=== PATIENT | male | born 1955 | race Caucasian/White ===

== ENCOUNTER 2024-07-04 15:29 | Outpatient (OUT) | payer MEDICARE, OTHER, SELFPAY ==
--- NOTE | 2024-07-04 15:42 | US_ITS ---
The [address] [address] Patient Name: YASMANY MICHAEL MRN: [id number] date: 1955 Sex: M Assigned Patient Location: US Current Patient Location: US Accession/Order Number: [id number] Exam Date: 07/04/2024 16:06 Report Date: 07/05/2024 09:09 At the request of: JADYN MARTINEZ Procedure: US venous doppler LE LT CLINICAL DATA: Left leg pain PROCEDURE: Left lower extremity venous duplex ultrasound TECHNIQUE: Blair-scale, color flow, and waveform spectral analysis was performed of the left lower extremity. FINDINGS: The left common femoral, profunda femoral, femoral, and popliteal veins were compressible. Superficial venous thrombosis was noted within the proximal to distal segment of the small saphenous vein. Superficial thrombus was seen within the great saphenous vein proximally. US/US venous doppler LE LT IMPRESSION: 1. No acute lower extremity deep venous thrombosis. 2. Superficial venous thrombosis involving the great and small saphenous veins. Electronically authenticated by: Danielle BUCKNER Date: 07/05/2024 09:09
== END 2024-07-04 15:30 | disposition home or self-care (01) ==
LOC: US 15:33
PROVIDERS: PCP Nurse Practitioner Family; Visit Provider Nurse Practitioner Family
DX: M79.605 Pain in left leg (principal)
CPT/HCPCS: 93971

== ENCOUNTER 2024-08-19 14:56 | Outpatient (OUT) | payer OTHER, MEDICARE, SELFPAY ==
--- NOTE | 2024-08-19 15:05 | US_ITS ---
The [address] [address] Patient Name: YASMANY MICHAEL MRN: [id number] date: 1955 Sex: M Assigned Patient Location: US Current Patient Location: US Accession/Order Number: [id number] Exam Date: 08/19/2024 15:06 Report Date: 08/19/2024 16:01 At the request of: JADYN MARTINEZ Procedure: US venous doppler LE LT CLINICAL DATA: Follow-up small saphenous vein thrombus. PROCEDURE: Left lower extremity venous duplex ultrasound. TECHNIQUE: Blair-scale, color flow, and waveform spectral analysis was performed of the left lower extremity. FINDINGS: The left common femoral, profunda femoral, femoral, and popliteal veins were compressible. The great saphenous vein was compressible. There is redemonstration of occlusive thrombus involving the small saphenous vein. No significant change from prior examination. No venous thrombosis was seen. The veins fill with color Doppler. Augmentation was normal. US/US venous doppler LE LT IMPRESSION: 1. No acute lower extremity deep venous thrombosis. 2. Redemonstration of superficial venous thrombosis involving the left small saphenous vein. Electronically authenticated by: Danielle BUCKNER Date: 08/19/2024 16:01
== END 2024-08-19 14:57 | disposition home or self-care (01) ==
LOC: US 14:56
PROVIDERS: PCP Nurse Practitioner Family; Visit Provider Nurse Practitioner Family
DX: I82.402 Acute embolism and thrombosis of unspecified deep veins of left lower extremity (principal); R22.42 Localized swelling, mass and lump, left lower limb
CPT/HCPCS: 93971

== ENCOUNTER 2025-02-25 14:35 | Outpatient (OUT) | payer OTHER, MEDICARE, SELFPAY ==
--- OUTSIDE RECORDS SUMMARY | 2024-08-20 08:58 | XMS_ITS ---
Demographics Address [address] [place] [phone] Mobile Email Address Preferred Language en Marital Status Sikhism Affiliation Unknown Race White Ethnic Group Not or Lati no Author Organization The [facility] in [place] Address [address] [place] [address] Care Team Providers Care Medical Delivery Technician Name Role Phone Linda Menjivar Primary Care Provider REASON FOR VISIT US Results Medications Medication SIG (Take, Route, Frequency, Duration) Notes Start Date End Date Status Xarelto 10 MG 1 tablet with food O rally Once a day for 30 days 07/05/2024 Active Encounters Encounter Location Date Provider Diagnosis [facility] [address] [place] [address] 08/20/2024 Linda Menjivar Superficial thrombophlebitis I80.9 Assessments Encounter Date Diagnosis (ICD Code) Assessment Notes Treatment Notes Treatment Clinical Notes Section Notes 08/20/2024 Superficial thrombophlebitis (ICD-10 - I80.9) Plan Of Treatment Medication Medication Name Sig Start Date Stop Date Notes Xarelto 10 MG 1 tablet with food O rally Once a day for 30 days 07/05/2024 Progress Notes * Nadir CORNELIUS PDOB:1955 (68 yo M)Acc No.[id number]:08/20/2024 Patient: Lloyd CASTAÑEDANadir Fischer :1955 A ge:68 Y S ex:Male Address:[facility] [address] [place] [address], [place] [address] * Refills Refill Xarelto Tablet, 10 MG, Orally, 30 Tablet, 1 tablet with food, Once a day, 30 days, Refills=5 Subjective: * Chief Complaints: * U S Results * Medical History: * Surgical History: * Hospitalization/Major Diagno stic Procedure: * Medications: Objective: * Vitals: * Physical Examination: Assessment: * Assessment: 1. S uperficial thrombophlebitis - I80.9 (Primary) Plan: * Treatment: * Procedure Codes: * true * Date: Generated for Mona schrader/Chago/Bhavana on: 0 02/25/2025 02:40 PM EDT
--- OUTSIDE RECORDS SUMMARY | 2024-08-26 04:10 | XMS_ITS ---
Author Organization The [facility] in [place] Address [address] [place] [address] Care Team Providers Care Voltage Inspector Name Role Phone Linda Menjivar Primary Care Provider [phone] REASON FOR VISIT US/ DVT- MB FULL X 3 Encounters Encounter Location Date Provider Diagnosis [facility] [address] [place] [address] 08/26/2024 Linda Menjivar Plan Of Treatment No Information Progress Notes * Nadir CORNELIUS PDOB:1955 (68 yo M)Acc No.[id number]:08/26/2024 Patient: Nadir GONZALEZ :1955 A ge:68 Y S ex:Male Address:[facility] [address] [place] [address], [address] * true * Date: Generated for Mona schrader/Chago/eTransmitting on: 0 02/25/2025 02:39 PM EDT
--- OUTSIDE RECORDS SUMMARY | 2025-02-25 14:39 | XMS_ITS | Patient Health Record ---
Demographics Address [facility] [address] [place] [phone] Mobile Email Address Preferred Language en Marital Status Muslim Affiliation Unknown Race White Ethnic Group Not or Lati no Author Organization The [facility] in [place] Address [address] [place] [address] Care Team Providers Care Childcare Center Administrator Name Role Phone Linda Menjivar Primary Care Provider Allergies Allergen (clinical drug ingredient) Drug/Non Drug Allergy documented on EMR Reaction Allergy Type Onset Date Status carisoprodol Soma knocks him out for days Drug Allergy Active codeine Codeine itching Drug Allergy Active Results Component Value Reference Range Notes US venous doppler LE BI Reviewed date:08/20/2024 01:01:45 PM Interpretation: Performing Lab: Notes/Report: Source Facility: [place] [address] Ultrasound Report Signed Patient: YASMANY CORNELIUS MR#: [id number] : 1955 Acct:[id number] Age/Sex: 68 / M ADM Date: 08/19/24 Loc: US Attending Dr: LINDA MENJIVAR Ordering Physician: LINDA MENJIVAR Date of Service: 08/19/24 Procedure(s): US venous doppler LE LT Accession Number(s): [id number] cc: LINDA MENJIVAR [place] [id number] Patient Name: YASMANY CORNELIUS MRN: [id number] date: 1955 Sex: M Assigned Patient Location: US Current Patient Location: US Accession/Order Number: [id number] Exam Date: 08/19/2024 15:06 Report Date: 08/19/2024 16:01 At the request of: LINDA MENJIVAR Procedure: US venous doppler LE LT CLINICAL DATA: Follow-up small saphenous vein thrombus. PROCEDURE: Left lower extremity venous duplex ultrasound. TECHNIQUE: Blair-scale, color flow, and waveform spectral analysis was performed of the left lower extremity. FINDINGS: The left common femoral, profunda femoral, femoral, and popliteal veins were compressible. The great saphenous vein was compressible. There is redemonstration of occlusive thrombus involving the small saphenous vein. No significant change from prior examination. No venous thrombosis was seen. The veins fill with color Doppler. Augmentation was normal. US/US venous doppler LE LT IMPRESSION: 1. No acute lower extremity deep venous thrombosis. 2. Redemonstration of superficial venous thrombosis involving the left small saphenous vein. Electronically authenticated by: Danielle ADAMES Date: 08/19/2024 16:01 Dictated By: Danielle Adames M.D. Signed By: 08/19/24 1604 DD/ 1601 TD/TT: Pole Peeling Machine Operator Helper: [place] [address] Ultrasound Report Signed Patient: YASMANY CORNELIUS MR#: [id number] : 1955 Acct:[id number] Age/Sex: 68 / M ADM Date: 08/19/24 Loc: US Attending Dr: LINDA MENJIVAR Ordering Physician: LINDA MENJIVAR Date of Service: 08/19/24 Procedure(s): US stacey ous doppler LE LT Accession Number(s): [id number] cc: LINDA MENJIVAR [place] [address] Patient Name: YASMANY CORNELIUS MRN: [id number] date: 1955 Sex: M Assigned Patient Location: US Current Patient Location: US Accession/Order Numb er: [id number] Exam Date: 08/19/2024 15:06 Report Date: 08/19/2024 16:01 At the request of: LINDA MENJIVAR Procedure: US venous doppler LE LT CLINICAL DATA: Follo w-up small saphenous vein thrombus. PROCEDURE: Left lowe r extremity venous duplex ultrasound. TECHNIQUE: Blair-scal e, color flow, and waveform spectral analysis was performed of the left lower extremity. FINDINGS: The left c ommon femoral, profunda femoral, femoral, and popliteal veins were compressi ble. The great saphenous vein was compressible. There is redemonstration of o cclusive thrombus involving the small saphenous vein. No significant change f rom prior examination. No venous thrombosis was seen. The veins fill with colo r Doppler. Augmentation was normal. U S/US venous doppler LE LT IMPRESSION: 1. No acute lower ex tremity deep venous thrombosis. 2. Redemonstration o f superficial venous thrombosis involving the left small saphenous vein. Electronically authe nticated by: Danielle ADAMES Date: 08/19/2024 16:01 Dictated By: Danielle Adames M.D. Signed By: 08/19/24 1604 DD/ 1601 TD/TT: Pole Peeling Machine Operator Helper: US venous doppler ROSS Reviewed date:07/05/2024 12:23:01 PM Interpretation: Performing Lab: Notes/Report: Source Facility: [place] [address] Ultrasound Report Signed Patient: Yasmany Cornelius MR#: [id number] : 1955 Acct:[id number] Age/Sex: 68 / M ADM Date: 07/04/24 Loc: US Attending Dr: LINDA MENJIVAR Ordering Physician: LINDA MENJIVAR Date of Service: 07/04/24 Procedure(s): US venous doppler LE LT Accession Number(s): [id number] cc: LINDA MENJIVAR [place] [address] Patient Name: YASMANY CORNELIUS MRN: [id number] date: 1955 Sex: M Assigned Patient Location: US Current Patient Location: US Accession/Order Number: [id number] Exam Date: 07/04/2024 16:06 Report Date: 07/05/2024 09:09 At the request of: LINDA MENJIVAR Procedure: US venous doppler LE LT CLINICAL DATA: Left leg pain PROCEDURE: Left lower extremity venous duplex ultrasound TECHNIQUE: Blair-scale, color flow, and waveform spectral analysis was performed of the left lower extremity. FINDINGS: The left common femoral, profunda femoral, femoral, and popliteal veins were compressible. Superficial venous thrombosis was noted within the proximal to distal segment of the small saphenous vein. Superficial thrombus was seen within the great saphenous vein proximally. US/US venous doppler LE LT IMPRESSION: 1. No acute lower extremity deep venous thrombosis. 2. Superficial venous thrombosis involving the great and small saphenous veins. Electronically authenticated by: Danielle ADAMES Date: 07/05/2024 09:09 Dictated By: Danielle Adames M.D. Signed By: 07/05/24910 DD/ 8 TD/TT: Pole Peeling Machine Operator Helper: [place] [address] Ultrasound Report Signed Patient: Yasmany Cornelius MR#: [id number] : 1955 Acct:[id number] Age/Sex: 68 / M ADM Date: 07/04/24 Loc: US Attending Dr: LINDA MENJIVAR Ordering Physician: LINDA MENJIVAR Date of Service: 07/04/24 Procedure(s): US stacey ous doppler LE LT Accession Number(s): [id number] cc: LINDA MENJIVAR [place] [address] Patient Name: YASMANY CORNELIUS MRN: [facility]:[id number] date: 1955 Sex: M Assigned Patient Location: US Current Patient Location: US Accession/Order Numb er: [id number] Exam Date: 16:06 Report Date: 07/05/2024 09:09 At the request of: LINDA MENJIVAR Procedure: US venous doppler LE LT CLINICAL DATA: Left leg pain PROCEDURE: Left lowe r extremity venous duplex ultrasound TECHNIQUE: Blair-scal e, color flow, and waveform spectral analysis was performed of the left lower extremity. FINDINGS: The left c ommon femoral, profunda femoral, femoral, and popliteal veins were compressi ble. Superficial venous thrombosis was noted within the proximal to distal s egment of the small saphenous vein. Superficial thrombus was seen within the great saphenous vein proximally. U S/ venous doppler LE LT IMPRESSION: 1. No acute lower ex tremity deep venous thrombosis. 2. Superficial venou s thrombosis involving the great and small saphenous veins. Electronically authe nticated by: Danielle ADAMES Date: 07/05/2024 09:09 Dictated By: Danielle Adames M.D. Signed By: 07/05/24910 DD/ 8 TD/TT: Pole Peeling Machine Operator Helper: Reason For Referral No Information Medications Medication SIG (Take, Route, Frequency, Duration) Notes Start Date End Date Status Benztropine Mesylate 0.5 MG TAKE 1 TABLET BY MOUTH EVERYDAY AT BEDTIME Oral for 30 Days Unknown ALPRAZolam 0.5 MG TAKE 1 TABLET BY SIOBHAN TH 3 TIMES A DAY NEEDED FOR ANXIETY Oral for 30 Days Unknown Xarelto 10 MG 1 tablet with food O rally Once a day for 30 days 07/05/2024 Active Suboxone 8-2 MG 1 film under the ton macarena and allow to dissolve Sublingual Once a day Unknown risperiDONE 1 MG TAKE 1 TABLET BY SIOBHAN TH AT BEDTIME Oral for 90 Days Unknown hydrOXYzine Pamoate 25 MG TAKE 1 CAPSULE BY MOUTH 3 TIMES A DAY NEEDED FOR ANXIETY Oral for 30 Days Unknown Social History Tobacco Use: Social History Observation Description Date Details (start date - stop date) Current Smoker NA - NA Tobacco Use/Smoking Question Answer Notes Patient is a current every day smoker Alcohol Screen (Audit-C) Question Answer Notes Did you have a drink containing alcohol in the p ast year? No Points 0 Interpretation Negative AUDIT-C (Standard) Question Answer Notes Did you have a drink containing alcohol in the p ast year? No Points 0 Interpretation Negative Problems Problem Type SNOMED Code ICD Code Onset Dates Problem Status W/U Status Risk Notes Problem 393902030 Peripheral vascular disease, unspecified (I73.9) Active confirmed Problem 46315627 Nicotine dependence, unspecified, uncomplicated (F17.200) Active confirmed Problem Hyperlipidaemia (03878846) Hyperlipemia (E78.5) Active confirmed Problem Anxiety (43568059) Anxiety (F41.9) Active confi rmed Problem Tremor (28575778) Tremor (R25.1) Active confirm ed Problem Arthritis (4241583) Arthritis (M19.90) Active confirmed Problem Back pain (803236170) Back pain (M54.9) Active confirmed Problem Lymphadenopathy (43324432) Enlarged lymph nodes (R59.9) Active confirmed Problem Deep vein thrombosis (379161384) Deep vein thrombosis (DVT) (I82.409) Active confirmed Problem Psychoactive substance dependence (2148389) Drug addiction (F19.20) Active confirmed Vital Signs Blood pressure diastolic 72 mm Hg 07/04/2024 Height 69 in 07/04/2024 Blood pressure systolic 128 mm Hg 07/04/2024 Weight 157.6 lbs 07/04/2024 BMI 23.27 kg/m2 07/04/2024 Encounters Encounter Location Date Provider Diagnosis [address] [address] 07/04/2024 Linda Menjivar Left leg pain M79.[address] [address] 07/05/2024 Linda Menjivar [address] [address] 07/05/2024 Linda Menjivar Superficial thrombophlebitis I80.[address] [address] 07/12/2024 Linda Menjivar [address] [address] 08/05/2024 Linda Menjivar Deep vein thrombosis (DVT) I82.[address] [address] 08/20/2024 Linda Menjivar Superficial thrombophlebitis I80.[address] [address] 08/26/2024 Linda Menjivar [address] [address] 02/14/2025 Linda Menjivar Deep vein thrombosis (DVT) I82.409 Assessments Encounter Date Diagnosis (ICD Code) Assessment Notes Treatment Notes Treatment Clinical Notes Section Notes 07/04/2024 Left leg pain (ICD-10 - M79.605) R/O DVT swelling redness and tenderness has improved some no hx of 07/05/2024 Superficial thrombophlebitis (ICD-10 - I80.9) 08/05/2024 Deep vein thrombosis (DVT) (ICD-10 - I82.409) 08/20/2024 Superficial thrombophlebitis (ICD-10 - I80.9) 02/14/2025 Deep vein thrombosis (DVT) (ICD-10 - I82.409) Plan Of Treatment Pending Test Test Name Order Date Venous Doppler 02/14/2025 VL Extremity Venous Duplex Lower Left US ST HEAD_NECK 12/29/2022 US STACEY DOP LEG LT 07/04/2024 Insurance Providers Payer Name Payer Address Payer Phone Subscriber Number Group Number Insured Name Patient Relationship to Insured Coverage Start Date Coverage End Date [employer] [address] [place] [address] [id number] Yasmany Cornelius Self - patient is the insured [place] [address] [place] [address] [id number] Yasmany Cornelius Self - patient is the insured Medical (General) History Medical History History ICD Code Tremor R25.1 Hyperlipemia E78.5 Anxiety F41.9 Arthritis M19.90 Back pain M54.9 Enlarged lymph nodes R59.9 Drug addiction F19.20 Surgical History Surgery Date(Month/Year) Veins in left leg Skin graft to rt hand Hospitalization History Reason Date(Month/Year) Liver failure- acute
--- OUTSIDE RECORDS SUMMARY | 2025-02-25 14:39 | XMS_ITS | Clinical Summary ---
Author Organization [facility] Address [address] [place] [address], [address] [place] [address] Care Team Providers Care Chair Lift Operator Name Role Phone Unavailable Primary Care Provider Unavailabl e Social History Tobacco Use Types Packs/Day Years Used Date Smoking Tobacco: Never Assessed Sex and Gender Information Value Date Recorded Sex Assigned at Not on file Legal Sex Male 7:37 PM EST Gender Identity Not on file Sexual Orientation Not on file Plan of Treatment Not on file Insurance ALLIED B[employer]EF[employer]
--- OUTSIDE RECORDS SUMMARY | 2025-02-25 14:40 | XMS_ITS | Clinical Summary ---
Demographics Address [address] [place] [address] Home Phone Preferred Language Unknown Marital Status Unknown Denominational Affiliation Unknown Race Unknown Ethnic Group Unknown Author Organization [facility] Address [address] [place] [address] Phone Care Team Providers Care Regulatory Attorney Name Role Phone Unavailable Primary Care Provider Unavailabl e Social History Tobacco Use Types Packs/Day Years Used Date Smoking Tobacco: Never Assessed Sex and Gender Information Value Date Recorded Sex Assigned at Not on file Legal Sex Male 11:34 AM EDT Gender Identity Not on file Sexual Orientation Not on file Plan of Treatment Health Maintenance Due Date Last Done Comments CT Colonography 1955 Colonoscopy 1955 Colorectal Cancer Screening 1955 FIT-DNA (Cologuard) 1955 FIT 1955 Lipid Panel 1955 Sigmoidoscopy 1955 Yearly Adult Physical 1955 MMR Vaccines (1 of 1 - Stand katarina series) 09/27/1956 Hepatitis C Screening 09/27/1973 DTaP/Tdap/Td Vaccines (1 - Tdap) 09/27/1977 PSA Prostate Cancer Screening 09/27/2005 Pneumococcal Vaccine (1 of 1 - PCV) 09/27/2005 Zoster Vaccines (1 of 2) 09/27/2005 COVID-19 Vaccine ( - 2023-2 5 season) 2024 Influenza Vaccine (#1) 2025 RSV High Risk: (Elderly (60+ ) or Population) (1 - 1-dose 75+ series) 09/27/2030 HIB Vaccines Aged Out No longer eligi ble based on patient's age to complete this topic HPV Vaccines Aged Out No longer eligi ble based on patient's age to complete this topic Hepatitis A Vaccines Aged Out No long er eligible based on patient's age to complete this topic Hepatitis B Vaccines Aged Out No long er eligible based on patient's age to complete this topic IPV Vaccines Aged Out No longer eligi ble based on patient's age to complete this topic Meningococcal Vaccine Aged Out No kilo kim eligible based on patient's age to complete this topic Rotavirus Vaccines Aged Out No longer eligible based on patient's age to complete this topic
--- OUTSIDE RECORDS SUMMARY | 2025-02-25 14:41 | XMS_ITS | Clinical Summary ---
Demographics Address [address] [facility] [place] [address] Home Phone Preferred Language Serbian Marital Status Zoroastrian Affiliation Unknown Race White Ethnic Group or Author Organization [facility] Address [id number] [place] [address] Care Team Providers Care Sleeve Maker Name Role Phone Linda Menjivar FLAT SORTING MACHINE CLERK-EXTRACTOR LOADER AND UNLOADER Primary Care Provider Allergies Active Allergy Reactions Criticality Noted Date Comments Carisoprodol Other (See Comments) 06/21/2023 Drowsy Other Reaction(s): knocks him out for days Codeine Itching 06/22/2016 Medications SUBOXONE 8-2 mg film Dissolve 1 Film on tongue in the morning. 0 06/13/2016 Active gabapentin (NEURONTIN) 600 mg tablet Take 1 tablet (600 mg total) by mouth in the morning. Active ALPRAZolam (XANAX) 0.5 mg tablet Take 1 tablet (0.5 mg total) by mouth nightly as needed for anxiety. Active ibuprofen (MOTRIN) 800 mg tablet Take 1 tablet (800 mg total) by mouth every 8 (eight) hours as needed for pain. 30 tablet 08/01/2023 Active Active Problems Problem Noted Date Diagnosed Date Knee effusion, right 06/21/2018 Non-recurrent unilateral ing uinal hernia without obstruction or gangrene 06/21/2018 Overview (06/21/2018): direct Acute gastritis without hemorrhage 04/19/2018 Weight loss 04/16/2018 Primary insomnia 04/16/2018 Tobacco use 04/16/2018 Cough 04/16/2018 Long-term use of high-risk medication 06/22/2017 Depression 06/22/2016 Tremor, essential 06/22/2016 Sleep apnea Overview (05/02/2018): on machine Family History Medical History Relation Name Comments No Known Problems Brother Heart attack Father Tremor Mother No Known Problems Sister Relation Name Status Comments Brother Father Mother Sister Social History Tobacco Use Types Packs/Day Years Used Date Smoking Tobacco: Every Day Cigarettes Smokeless Tobacco: Never Tobacco Cessation:Ready to Q uit: Not Asked; Counseling Given: Not Answered Alcohol Use Standard Drinks/Week Comments No 0 (1 standard drink = 0.6 oz pur e alcohol) PHQ-2 Answer Date Recorded Total Score 0 06/21/2018 Childcare Answer Date Recorded Childcare Unknown 01/02/2019 Employment Answer Date Recorded Employment Unknown 01/02/2019 Hunger Screening Answer Date Recorded Within the past 12 months we worried whether our food would run out before we got money to buy more. Never True 06/21/2023 Food Insecurity - Inability Not on file 05/25 Purpose - Life Answer Date Recorded Purpose and direction in life Unknown Sex and Gender Information Value Date Recorded Sex Assigned at Not on file Legal Sex Male 11:52 AM EDT Gender Identity Not on file Sexual Orientation Not on file Last Filed Vital Signs Vital Sign Reading Time Taken Comments Blood Pressure 117/58 08/15/2023 9:00 AM EST Pulse 65 08/01/2023 10:08 AM EST Temperature 36.7 C (98.1 F) 08/01/2023 6:37 AM EST Respiratory Rate 12 08/01/2023 10:08 AM EST Oxygen Saturation 99% 08/01/2023 10:08 AM EST Inhaled Oxygen Concentration - - Weight 63.5 kg (140 lb) 08/15/2023 9:00 AM EST Height 176.5 cm (5' 9.5 ) 08/15/2023 9:00 AM EST Body Mass Index 20.38 08/15/2023 9:00 AM EST Plan of Treatment Health Maintenance Due Date Last Done Comments Depression Screening 1967 Zoster (Shingles) Vaccine (1 of 2) 09/27/2005 Abdominal Aortic Aneurysm (AAA) Screen 09/27/2020 Fall Risk Screening 09/27/2020 COVID-19 Vaccine ( season) 2024 Adult BMI Screening 08/15/2024 08/15/2023 Tobacco Screening 08/15/2024 08/15/2023 DTaP,Tdap and Td Vaccines Discontinued Influenza Vaccine Discontinued Medical Devices Implanted Type Area Piercing Specialist Device Identifier Shelf Expiration Date Model / Serial / Lot Mesh 1in Med Pp Srgpro Nabsb Knit Plg Srg Strl Clr Hrn Rpl [id number] - Sna - [id number] Implanted:Qty: 1 on 08/01/2023 by Boom Camacho, DO at [facility] Mesh [employer] [facility] 04/22/2026 [facility]- / NA / [id number] Mesh 1in Med Pp Srgpro Nabsb Knit Plg Srg Strl Clr Hrn Rpl [id number] - Sna - [id number] Implanted:Qty: 1 on 08/01/2023 by Boom Camacho, DO at [facility] Mesh [employer] [facility] 04/22/2026 [facility]- / NA / [id number] Insurance * Guarantor: Nadir Cornelius Account Type Relation to Patient Date of Phone Billing Address Personal/Family Self 1955 [facility] [address] [place] [address] MEDICARE [id number] Care Teams Sleeve Maker Relationship Specialty Start Date End Date Linda Menjivar, FLAT SORTING MACHINE CLERK-EXTRACTOR LOADER AND UNLOADER [address] [place] [id number] PCP - General Family Medicine 05/30/23
--- OUTSIDE RECORDS SUMMARY | 2025-02-25 14:41 | XMS_ITS | Encounter Summary ---
Demographics Address [address] [place] [address] Home Phone Preferred Language Somali Marital Status Baptist Affiliation Unknown Race White Ethnic Group or Author Organization [employer] tem Address [facility] [id number] [address] [place] [address] Care Team Providers Care Sports Director Name Role Phone Linda Menjivar APRNCROSS TIE TRAM LOADER Primary Care Provider Reason for Visit * Reason Comments Med Refill Encounter Details Date Type Department Care Team ([facility] st Contact Info) Description 09/16/2017 Refill [facility] [address] [facility] [address] [place] [address] Mervin Torre MD [address] [facility] [address] [place] [address] Tremor, essential Social History Tobacco Use Types Packs/Day Years Used Date Smoking Tobacco: Every Day Smokeless Tobacco: Never Alcohol Use Standard Drinks/Week Comments No 0 (1 standard drink = 0.6 oz pur e alcohol) Sex and Gender Information Value Date Recorded Sex Assigned at Not on file Legal Sex Male 11:52 AM EDT Gender Identity Not on file Sexual Orientation Not on file documented as of this encounter Plan of Treatment Not on file documented as of this encounter Visit Diagnoses Diagnosis Tremor, essential Essential and other specified forms of tremor documented in this encounter Care Teams Sports Director Relationship Specialty Start Date End Date Linda Menjivar APRN-CNP [address] [facility] [place] [address] PCP - General Family Medicine 05/30/23 documented as of this encounter
--- OUTSIDE RECORDS SUMMARY | 2025-02-25 14:41 | XMS_ITS | Encounter Summary ---
Demographics Address [address] [place] [address] Home Phone Preferred Language Gibraltarian Marital Status Caodaism Affiliation Unknown Race White Ethnic Group or Author Organization [email or web address] Address [facility] [id number] [address] [place] [address] Care Team Providers Care Weight Loss Counselor Name Role Phone Linda Menjivar Primary Care Provider Reason for Visit * Reason Comments Med Refill Encounter Details Date Type Department Care Team (Late st Contact Info) Description 06/13/2018 Refill [facility] [address] [facility] [address] [place] [address] Mervin Torre MD [address] [facility] [address] [place] [address] Social History Tobacco Use Types Packs/Day Years [...] documented as of this encounter Visit Diagnoses Not on filedocumented in this encounter Additional Health Concerns Assessment Noted Time PHQ-9 Depression Total Score: 0 05/10/20 18 1:00 PM EDT documented as of this encounter Care Teams Weight Loss Counselor Relationship Specialty Start Date End Date Linda Menjivar APRN-CNP [address] [facility] [address] PCP - General Family Medicine 05/30/23 documented as of this encounter
--- OUTSIDE RECORDS SUMMARY | 2025-02-25 14:41 | XMS_ITS | Clinical Summary ---
Author Organization [facility] Address [address] [facility] [place] [address] Care Team Providers Care Shactor Name Role Phone Fahad Tiffany BAUTISTA Primary Care Provider Allergies Active Allergy Reactions Criticality Noted Date Comments Codeine 09/25/2024 Medications hydrOXYzine HCl (Atarax) 25 MG tablet Take 25 mg by mouth every 8 (eight) hours if needed for itching Active risperiDONE (RisperDAL) 0.5 MG tablet Take 0.5 mg by mouth in the morning and 0.5 mg before bedtime. Active ALPRAZolam (Xanax) 0.5 MG tablet Take 0.5 mg by mouth 3 (three) times a day as needed for anxiety Active rivaroxaban (Xarelto) 10 MG tablet Take 10 mg by mouth Daily Active buprenorphine-n aloxone (Suboxone) 8-[address] 1 tablet under the tongue Daily Active propranolol LA (Inderal LA) 60 MG 24 hr capsuleIndicati ons:Familial tremor TAKE 1 CAPSULE BY MOUTH EVERY DAY 90 capsule 1 10/28/2024 Active Social History Tobacco Use Types Packs/Day Years Used Date Smoking Tobacco: Never Assessed Sex and Gender Information Value Date Recorded Sex Assigned at Not on file Legal Sex Male 6:44 PM EDT Gender Identity Not on file Sexual Orientation Not on file Last Filed Vital Signs Vital Sign Reading Time Taken Comments Blood Pressure 122/68 09/25/2024 2:16 PM EST Pulse 69 09/25/2024 2:16 PM EST Temperature - - Respiratory Rate - - Oxygen Saturation 90% 09/25/2024 2:16 PM EST Inhaled Oxygen Concentration - - Weight 69.9 kg (154 lb 3.2 oz) 09/25/2024 2:16 P M EST Height 176.5 cm (5' 9.5 ) 07/02/2018 12:00 PM ES T Body Mass Index 22.44 07/02/2018 12:00 PM EST Plan of Treatment Health Maintenance Due Date Last Done Comments CT Colonography 1955 Colonoscopy 1955 Colorectal Cancer Screening 1955 FIT-DNA 1955 FIT 1955 FOBT 1955 Sigmoidoscopy 1955 Pneumococcal Vaccine: 65+ Years (1 of 1 - PCV) 006 Influenza Vaccine (#1) 2025 Insurance * Guarantor: Nadir Cornelius Account Type Relation to Patient Date of Phone Billing Address Personal/Family Self 1955 [facility] [address] [place] [id number] [employer] MEDICARE Care Teams Shactor Relationship Specialty Start Date End Date Tiffany Vásquez NP [address] [place] [id number] PCP - General Behavioral Health 08/13/24
== END 2025-02-25 14:36 | disposition home or self-care (01) ==
LOC: US 14:37
PROVIDERS: PCP Nurse Practitioner Family; Visit Provider Nurse Practitioner Family
DX: I82.402 Acute embolism and thrombosis of unspecified deep veins of left lower extremity (principal)
CPT/HCPCS: 93971